=== PATIENT | female | born 1985 | race Two or more races ===

== ENCOUNTER 2021-03-18 08:31 | Emergency (ER) | payer OTHER ==
[~2021-03-18] VITALS: Ht 162.6 cm; Wt 104.3 kg
[2021-03-18] MEDS ORDERED: BUDESONIDE-FO10.2 G1 (08:54)
[2021-03-18] MEDS ORDERED: AMOX-CLAV 875-1 EACH PO (13:05)
[2021-03-18] MEDS ORDERED: AZELASTINE205.5 MCG/ NASAL (13:05)
== END 2021-03-18 13:29 | disposition home or self-care (01) ==
LOC: ER 08:31
DX: J06.9 Acute upper respiratory infection, unspecified (principal); Z03.818 Encounter for observation for suspected exposure to other biological agents ruled out